=== PATIENT | female | born 1965 ===

== ENCOUNTER 2021-12-29 12:38 | Observation (INO) ==
[~2021-12-29 12:38] MED LIST: Clindamycin 900 MG/D5W BAG IVPB ONE
[2021-12-29] MEDS ORDERED: Ondansetron 4 mg VIAL 2 MG/ML 2 ml VIAL ONE (12:49)
[2021-12-29] MEDS ORDERED: oxyCODONE SR 10 mg TAB ONE (12:49)
[2021-12-29] MEDS ORDERED: Scopolamine 1 mg/72hr PATCH ONE (12:49)
[2021-12-29 13:30] LABS: INR 1.99 (0.89-1.11)
[2021-12-29 13:41] LABS: ABS Basophils 0.1 10^3/ul (0-0.2); ABS Lymphocytes 1.2 10^3/ul (1.0-4.8); ABS Monocytes 0.4 10^3/ul (0-0.8); ABS Neutrophils 6.4 10^3/ul (1.5-7.7); Eosinophil % 0.5 %; Hematocrit 18 % (35-47); Hemoglobin 5.7 g/dL (12.0-16.0); Lymphocyte % 15.1 %; Mean Corpuscular HGB Conc 31 g/dL (31-36); Mean Corpuscular Hemoglobin 28 pg (27-31); Mean Corpuscular Volume 88 fL (80-97); Mean Platelet Volume 7.4 fL (7.4-10.4); Nucleated Red Blood Cells % 0.1; Platelet Count 244 10^3/uL (150-450); Red Blood Count 2.05 10^6 /uL (3.70-4.87); Red Cell Distribution Width 17 % (10-15); White Blood Count 8.2 10^3/uL (3.5-10.8)
[2021-12-29 13:55] LABS: HCG Pregnancy 1.6 mIU/mL
[2021-12-29 13:56] LABS: Calcium 9.6 mg/dL (8.6-10.3); eGFR CKD-EPI 98.7 (>60)
[2021-12-29] MEDS ORDERED: Lidocaine 1% VIAL 10 MG/ML VIAL ONE (14:54)
[2021-12-29] MEDS ORDERED: Iohexol 350 (CONTRAST) 100 ML PAK IV ONE (14:54)
[2021-12-29] MEDS ORDERED: Heparin 2 UNITS/ML IVPREMIX 3,000 UNIT/1,500 ML BAG IV ONE (14:54)
[2021-12-29] MEDS ORDERED: Midazolam 5 mg/5 ml VIAL 1 mg/ml 5 ml VIAL (5 mg) ONE (14:58)
[2021-12-29] MEDS ORDERED: fentaNYL 250 mcg/5 ml 50 MCG/ML 5 ml VIAL (250 MCG) ONE (14:58)
[2021-12-29] MEDS ORDERED: nitroGLYCERIN DRIP 25,000 MCG/250 ML BTL ONE (15:05)
[2021-12-29] MEDS ORDERED: HYDROmorphone PCA 1 MG/ML Titrat per Protocol PCA SCH (16:00)
[2021-12-29] MEDS ORDERED: HYDROmorphone 0.5 MG/0.5 ML SYRINGE ONE (16:36)
[2021-12-29] MEDS ORDERED: NS 0.9% 1000 ml BAG 1,000 ML IV SCH (18:00)
[2021-12-29 19:52] LABS: Hematocrit 22 % (35-47)
[2021-12-29 20:24] LABS: High Sensitivity Troponin 1 Hr 4 pg/mL (<15)
[2021-12-29] MEDS ORDERED: Ondansetron 4 mg VIAL 2 MG/ML 2 ml VIAL IV PRN (22:00)
[2021-12-29] MEDS: Ondansetron 4 mg VIAL 2 MG/ML 2 ml VIAL IV SCH (22:31)
[2021-12-29 23:30] LABS: High Sensitivity Troponin 3 Hr 4 pg/mL (<15)
[2021-12-30] MEDS: Ondansetron 4 mg VIAL 2 MG/ML 2 ml VIAL IV SCH (04:29)
[2021-12-30 05:24] LABS: Hematocrit 22 % (35-47); Hemoglobin 6.8 g/dL (12.0-16.0); Mean Corpuscular HGB Conc 32 g/dL (31-36); Mean Corpuscular Hemoglobin 28 pg (27-31); Mean Corpuscular Volume 89 fL (80-97); Mean Platelet Volume 7.8 fL (7.4-10.4); Platelet Count 228 10^3/uL (150-450); Red Blood Count 2.44 10^6 /uL (3.70-4.87); Red Cell Distribution Width 17 % (10-15); White Blood Count 8.6 10^3/uL (3.5-10.8)
[2021-12-30] MEDS ORDERED: HYDROcodone/ACETAMIN 5/325 mg TAB PO PRN (08:29)
[2021-12-30] MEDS: Aspirin EC 81 mg TAB.EC (enteric coated) PO SCH (09:15)
[2021-12-30] MEDS: Ketorolac 10 mg TAB (NF) PO SCH ×3 (11:47→23:53)
[2021-12-30 15:13] LABS: Hematocrit 26 % (35-47); Hemoglobin 8.4 g/dL (12.0-16.0)
[2021-12-31] MEDS: Ketorolac 10 mg TAB (NF) PO SCH ×2 (04:40→11:58)
[2021-12-31 05:02] LABS: Hematocrit 24 % (35-47); Hemoglobin 7.7 g/dL (12.0-16.0)
[2021-12-31 08:15] VITALS: BP 131/81
[2021-12-31] MEDS: Aspirin EC 81 mg TAB.EC (enteric coated) PO SCH (09:20)
== END 2021-12-31 13:15 | disposition home or self-care (01) ==
LOC: CHICATH 12:38 → SSU 12:38
PROVIDERS: ADMIT Internal Medicine; ATTEND Radiology Diagnostic Radiology
PROC: ANG.UFE (2021-12-29 13:10)